=== PATIENT | male | born 1990 | race African-American/Black ===

== ENCOUNTER 2024-08-04 13:57 | Emergency (ER) | payer OTHER ==
[~2024-08-04] VITALS: Ht 172.7 cm; Wt 86.2 kg
[2024-08-04] MEDS ORDERED: NAPR-1505 PO (15:00)
[2024-08-04] MEDS: ORPHENADRINE 60MG/2ML IM ONE (15:40)
[2024-08-04 15:44] VITALS: BP 141/87; PULSE 80; RESP 17; TEMP 97.9; O2SAT 99
== END 2024-08-04 15:50 | disposition home or self-care (01) ==
LOC: EDH 13:57
DX: S46.911A Strain of unspecified muscle, fascia and tendon at shoulder and upper arm level, right arm, initial encounter (principal); E11.9 Type 2 diabetes mellitus without complications; V89.2XXA Person injured in unspecified motor-vehicle accident, traffic, initial encounter; Y93.89 Activity, other specified; Y92.89 Other specified places as the place of occurrence of the external cause; Y99.8 Other external cause status
CPT/HCPCS: 72040; 73030; J2360